=== PATIENT | male | born 1980 | race Caucasian/White ===

== ENCOUNTER 2019-07-05 11:02 | Emergency (ER) | payer OTHER, SELFPAY ==
[2019-07-05 11:03] VITALS: BP 145/88; PULSE 80; RESP 16; TEMP 36.4; O2SAT 97; BMI 34.4
--- NOTE | 2019-07-05 11:31 | ED.VISSUMM ---
- ER Visit Summary Date of Service: 07/05/19 Chief Complaint: Left long finger laceration History of Present Illness: The patient is a 39 M right-hand dominant. Tetanus greater than 10 years ago will need updated. Patient was cutting wood with a circular saw and lacerated his left long finger at the distal end. He does not believe there is any bony injury and does not want to be x-rayed. He denies any other injuries. Physical Examination: Middle-aged male no acute distress vital signs stable afebrile. HEENT exam unremarkable. Neck nontender. Lungs clear to auscultation. Heart regular rhythm no murmur. Left hand left long finger at the distal and he is a flap laceration of the skin over the distal phalanx. Otherwise the fingers neurovascular intact with full flexion-extension. Normal cap refill. Normal touch sensation. He is able to make a fist and has full flexion-extension all digits of the hand specifically the left long finger. There is no gross bony deformity. There is minimal oozing of blood. There is no pulsatile bleeding. There is no signs of infection or foreign body. Test Results: Discussed with patient x-ray he deferred. Emergency Department Course and Treatment: Left long finger laceration with ER repair. Digital block to left long finger using lidocaine. Once proper x-rays obtained finger was cleaned. Using iodine and washed with saline and copiously irrigated. Closed using 4-0 Ethilon sutures simple interrupted. I placed 9 simple interrupted 4-0 Ethilon sutures. Patient tolerated procedure well. Proper hemostasis wound closure was obtained. Treatment Plan: Wound care. Suture removal in 10 days. Watch for any signs of infection is seen return. Disposition: Discharge Impression: Left long finger laceration with ER repair irregular 4 cm laceration Tetanus updated This note was generated with [employer] dictation software. It may contain incorrect words, spelling, and punctuation that were not noted in review of the chart prior to signing ED Disposition - Plan for ED Patient: Referrals: Sal Bowers III, MD [Primary Care Provider] -
[2019-07-05] MEDS: Acetaminophen 500 MG Tablet 1000 MG PO (11:41)
[2019-07-05] MEDS: Diphth,Pertuss(Acell),Tet Vac 0.5 ML Vial IM (11:41)
--- NOTE | 2019-07-05 12:35 | ED.DEP ---
ED Disposition - Plan for ED Patient: Disposition: Home or Assisted Living Instructions: LACERATION, Hand Referrals: Sal Bowers III, MD [Primary Care Provider] - 10 Day for suture removal Additional Instructions: Watch for any signs of infection such as redness, fever, pus or streaks is seen return. Ice and elevate finger to decrease pain and swelling. Clean daily with soap water peroxide and water and apply antibiotic ointment. Suture removal in 10 days.
--- NOTE | 2019-07-05 12:48 | ED.RN ---
DISCHARGE INSTRUCTIONS GIVEN TO AND REVIEWED WITH PATIENT, PATIENT DENIES QUESTIONS OR CONCERNS AND VOICES UNDERSTANDING OF DISCHARGE INSTRUCTIONS. PT AMBULATES OUT OF ROOM WITHOUT DIFFICULTY.
== END 2019-07-05 12:48 | disposition home or self-care (01) ==
PROVIDERS: Emergency Provider Emergency Medicine; Family Provider Family Medicine; PCP Family Medicine
DX: S61.213A Laceration without foreign body of left middle finger without damage to nail, initial encounter (principal); W29.3XXA Contact with powered garden and outdoor hand tools and machinery, initial encounter; Y93.9 Activity, unspecified; Y92.89 Other specified places as the place of occurrence of the external cause; Y99.9 Unspecified external cause status; Z23 Encounter for immunization
CPT/HCPCS: 12002; 90471; 90715; 99284